=== PATIENT | female | born 2000 | race African-American/Black ===

== ENCOUNTER 2021-01-09 15:38 | Emergency (ER) | payer MEDICAID ==
[~2021-01-09] VITALS: Ht 165.1 cm; Wt 73.0 kg
[2021-01-09 18:33] LABS: CLARITY URINE TURBID (CLEAR); COLOR URINE YELLOW (YELLOW); KETONES URINE NEGATIVE (NEGATIVE); LEUKOCYTE ESTERASE URINE 3+ (NEGATIVE); NITRITE URINE POSITIVE (NEGATIVE); OCCULT BLOOD URINE NEGATIVE (NEGATIVE); PH URINE 7.5 (4.5-8.0); PROTEIN URINE 1+ (NEGATIVE); SPECIFIC GRAVITY URINE 1.022 (1.005-1.030)
[2021-01-09] MEDS ORDERED: METR500T MT (18:53)
[2021-01-09] MEDS ORDERED: NITR-87 MT (18:53)
[2021-01-09 19:05] VITALS: BP 106/74
[2021-01-12 04:12] LABS: NEISSERIA GONORRHOEAE NAA Negative (Negative)
== END 2021-01-09 19:06 | disposition home or self-care (01) ==
LOC: ER 15:38
DX: N39.0 Urinary tract infection, site not specified (principal); N76.0 Acute vaginitis
CPT/HCPCS: 81003; 81025; 87077; 87186; 87210; 87491; 87591; 99283

== ENCOUNTER 2021-10-08 23:55 | Emergency (ER) | payer MEDICAID ==
[~2021-10-08] VITALS: Ht 167.6 cm; Wt 69.0 kg
[~2021-10-08 23:55] MED LIST: METR500T MT; NITR-87 MT
[2021-10-09 00:10] VITALS: BP 121/73
== END 2021-10-09 02:00 | disposition left against medical advice (07) ==
LOC: ER 23:55
DX: Z53.21 Procedure and treatment not carried out due to patient leaving prior to being seen by health care provider (principal)

== ENCOUNTER 2024-10-12 12:20 | Emergency (ER) | payer MEDICAID ==
[~2024-10-12] VITALS: Ht 167.6 cm; Wt 72.0 kg
[2024-10-12 12:28] VITALS: O2SAT 100
[2024-10-12 13:26] LABS: CLARITY URINE CLEAR (CLEAR); COLOR URINE YELLOW (YELLOW); GLUCOSE URINE NEGATIVE (NEGATIVE); KETONES URINE NEGATIVE (NEGATIVE); LEUKOCYTE ESTERASE URINE 3+ (NEGATIVE); NITRITE URINE NEGATIVE (NEGATIVE); OCCULT BLOOD URINE NEGATIVE (NEGATIVE); PH URINE 7.5 (4.5-8.0); PROTEIN URINE NEGATIVE (NEGATIVE); SPECIFIC GRAVITY URINE 1.013 (1.005-1.030); UROBILINOGEN URINE 0.2 E.U./dL (0.2-1.0)
[2024-10-12 14:04] LABS: RBC URINE 0-2 /hpf (0-2); SQUAMOUS EPITHELIAL CELL URINE 2+ /lpf (RARE/1+)
[2024-10-12 14:05] LABS: BACTERIA URINE 2+
[2024-10-12 14:46] VITALS: BP 114/59; PULSE 65; RESP 18; TEMP 36.9; O2SAT 96
[2024-10-12] MEDS ORDERED: METR-167 MT (15:04)
== END 2024-10-12 15:23 | disposition home or self-care (01) ==
LOC: ER 12:20
DX: O26.893 Other specified pregnancy related conditions, third trimester (principal); N76.0 Acute vaginitis; B96.89 Other specified bacterial agents as the cause of diseases classified elsewhere; Z3A.34 34 weeks gestation of pregnancy
CPT/HCPCS: 76805; 81003; 81025; 87210; 99284